=== PATIENT | female | born 1970 | race Two or more races ===

== ENCOUNTER 2018-07-30 15:06 | Emergency (ER) | payer MEDICAID ==
[~2018-07-30] VITALS: Ht 160 cm; Wt 85.0 kg
[2018-07-30] MEDS ORDERED: MAALOX/HYOSCYAMINE/LIDOCAINE 45 ML BTL ONE (15:47)
[2018-07-30] MEDS ORDERED: MAALOX/HYOSCYAMINE/LIDOCAINE 45 ML BTL PO ONE (16:00)
[2018-07-30 16:03] LABS: ALANINE AMINOTRANSFERASE 20 U/L (12-78); ALBUMIN 3.8 g/dL (3.4-5.0); ANION GAP 10 mmol/L (5-15); CALCIUM 8.7 mg/dL (8.5-10.1); CHLORIDE 108 mmol/L (98-107); CREATININE 0.62 mg/dL (0.55-1.02)
[2018-07-30 16:04] LABS: BASOPHILS # (AUTO) 0.02 x10^3/uL (0-0.1); BASOPHILS % (AUTO) 0 % (0-1); EOSINOPHILS # (AUTO) 0.06 x10^3/uL (0-0.4); EOSINOPHILS % (AUTO) 1 % (1-7); LYMPHOCYTES # (AUTO) 2.85 x10^3/uL (1-3.4); LYMPHOCYTES % (AUTO) 37 % (22-44); MD NO; MEAN CORPUSCULAR HEMOGLOBIN 28.8 pg (27.0-34.8); MEAN CORPUSCULAR HGB CONC 33.5 g/dL (32.4-35.8); MONOCYTES # (AUTO) 0.44 x10^3/uL (0.2-0.8); MONOCYTES % (AUTO) 6 % (2-9); NEUTROPHILS # (AUTO) 4.41 x10^3/uL (1.8-6.8); NEUTROPHILS % (AUTO) 57 % (42-75); PLATELET COUNT 349 x10^3/uL (130-400); RED BLOOD COUNT 4.92 x10^6/uL (3.82-5.3); RED CELL DISTRIBUTION WIDTH 13.8 % (9.6-15.2)
[2018-07-30 16:08] LABS: ALKALINE PHOSPHATASE 77 U/L (45-117); BILIRUBIN,TOTAL 0.5 mg/dL (0.2-1.0); TOTAL PROTEIN 8.4 g/dL (6.4-8.2); TROPONIN I < 0.015 ng/mL (0.000-0.045)
[2018-07-30 17:46] VITALS: BP 114/63
[2018-08-05] MEDS ORDERED: None per pt (11:29)
== END 2018-07-30 18:30 | disposition home or self-care (01) ==
LOC: ED 16:47
DX: K21.0 Gastro-esophageal reflux disease with esophagitis (principal); R07.89 Other chest pain
CPT/HCPCS: 36415; 71046; 74220; 80053; 83690; 84484; 85025; 93005; 99285

== ENCOUNTER 2018-08-08 05:38 | Day surgery (SDC) | payer MEDICAID ==
[~2018-08-08] VITALS: Ht 160 cm; Wt 84.0 kg
[~2018-08-08 05:38] MED LIST: None per pt
[2018-08-08 06:09] VITALS: BP 124/69
[2018-08-08] MEDS ORDERED: LACTATED RINGERS 1,000 ML IV SCH (06:15)
[2018-08-08] MEDS ORDERED: BUPIVACAINE/PF-EPI 0.5% 1:200K ONE (06:29)
[2018-08-08] MEDS ORDERED: NEOMY/POLYMYXIN B GU IRR. 1 ML IRRIG ONE (06:30)
[2018-08-08 06:49] LABS: HCG UR SG 1.018 (1.003-1.030)
[2018-08-08] MEDS ORDERED: FENTANYL PF 250 MCG/5ML ONE (06:52)
[2018-08-08] MEDS ORDERED: MIDAZOLAM 1 MG/ML, 2ML ONE (06:52)
[2018-08-08] MEDS ORDERED: PROPOFOL 10 MG/ML, 20ML ONE (06:53)
[2018-08-08] MEDS ORDERED: ROCURONIUM 10MG/ML,5ML ONE (06:54)
[2018-08-08] MEDS ORDERED: GLYCOPYRROLATE 0.4 MG/2 ML, 2ML ONE (06:54)
[2018-08-08] MEDS ORDERED: NEOSTIGMINE 1 MG/ML, 10ML ONE (06:54)
[2018-08-08] MEDS ORDERED: SODIUM CHLORIDE 0.9% PF 10ML ONE (06:55)
[2018-08-08] MEDS ORDERED: CEFAZOLIN 1,000 MG ONE ×2 (06:55)
[2018-08-08] MEDS ORDERED: ONDANSETRON 2MG/ML, 2ML ONE (06:59)
[2018-08-08] MEDS ORDERED: DEXAMETHASONE 4 MG/ML, 1ML ONE ×2 (06:59)
[2018-08-08] MEDS ORDERED: GABAPENTIN 300 MG CAPSULE PO ONE (07:00)
[2018-08-08] MEDS ORDERED: SCOPOLAMINE PATCH, 1.5MG PATCH.TD72 TD ONE (07:00)
[2018-08-08] MEDS ORDERED: OxyconTIN ER 20 MG TAB.ER PO ONE (07:00)
[2018-08-08] MEDS ORDERED: ACETAMINOPHEN 500 MG TABLET PO ONE (07:00)
[2018-08-08] MEDS ORDERED: ONDANSETRON ODT 8 MG PO ONE (07:00)
[2018-08-08] MEDS ORDERED: FENTANYL PF 100 MCG/2ML IV PRN (07:30)
[2018-08-08] MEDS ORDERED: ONDANSETRON 2MG/ML, 2ML IV PRN (07:30)
[2018-08-08] MEDS ORDERED: PROMETHAZINE 25 MG/ML, 1ML IM PRN ×2 (07:30)
[2018-08-08] MEDS ORDERED: hydrALAzine 20 MG/ML, 1ML IV PRN (07:30)
[2018-08-08] MEDS ORDERED: PROMETHAZINE 25 MG/ML, 1ML IV PRN (07:30)
[2018-08-08] MEDS ORDERED: MORPHINE SULFATE 4 MG/ML, 1ML IVPush PRN (07:30)
[2018-08-08] MEDS ORDERED: OXYcodone 5 MG/5 ML ORAL.SOL UDC PO PRN (07:30)
[2018-08-08] MEDS ORDERED: HYDROmorphone 1 MG/ML, 1ML IV PRN (07:30)
[2018-08-08] MEDS ORDERED: LABETALOL 5MG/ML, 20ML IV PRN (07:30)
[2018-08-08] MEDS ORDERED: ONDANSETRON ODT 8 MG PO PRN (07:30)
[2018-08-08] MEDS ORDERED: MEPERIDINE/PF 25MG/0.5ML IVPush PRN (07:30)
[2018-08-08] MEDS ORDERED: FENTANYL PF 100 MCG/2ML ONE ×2 (08:39→10:12)
[2018-08-08] MEDS ORDERED: KETOROLAC 30 MG/1 ML ONE (08:56)
== END 2018-08-08 12:45 | disposition home or self-care (01) ==
LOC: OUT 05:38
PROVIDERS: ATTEND Obstetrics & Gynecology Female Pelvic Medicine and Reconstructive Surgery
DX: N71.1 Chronic inflammatory disease of uterus (principal); N92.1 Excessive and frequent menstruation with irregular cycle; D25.9 Leiomyoma of uterus, unspecified; N94.6 Dysmenorrhea, unspecified; N81.89 Other female genital prolapse; N39.46 Mixed incontinence; D64.9 Anemia, unspecified; N80.0 Endometriosis of uterus; R87.613 High grade squamous intraepithelial lesion on cytologic smear of cervix (HGSIL)
CPT/HCPCS: 57265; 57282; 57288; 58552; 81025; 88307; C1771; J0690; J1100; J1885; J2250; J2405; J2704; J2710; J3010; J7120; Q0162

== ENCOUNTER → 2020-11-12 | Outpatient (CLI) | payer MEDICAID | END | disposition home or self-care (01) | LOC: CFH 14:31 | PROVIDERS: ATTEND Family Medicine | DX: Z12.31 Encounter for screening mammogram for malignant neoplasm of breast (principal); Z12.39 Encounter for other screening for malignant neoplasm of breast | CPT/HCPCS: 76641; 77063; 77067 ==